=== PATIENT | female | born 1960 | race Caucasian/White ===

== ENCOUNTER → 2017-11-12 | Outpatient (CLI) | payer OTHER | LOC: LAB SHORT 11:12 | DX: M35.3 Polymyalgia rheumatica (principal) | CPT/HCPCS: 85651 ==

== ENCOUNTER → 2017-12-14 | Outpatient (CLI) | payer OTHER | LOC: LAB 10:49 | DX: M35.3 Polymyalgia rheumatica (principal) | CPT/HCPCS: 85651 ==

== ENCOUNTER → 2018-02-03 | Outpatient (CLI) | payer OTHER | END | disposition home or self-care (01) | LOC: LAB 11:20 | DX: M35.3 Polymyalgia rheumatica (principal) | CPT/HCPCS: 85651 ==

== ENCOUNTER → 2018-03-17 | Outpatient (CLI) | payer OTHER | LOC: LAB SHORT 10:22 → LAB 10:22 | DX: M35.3 Polymyalgia rheumatica (principal) | CPT/HCPCS: 85651 ==

== ENCOUNTER → 2018-04-14 | Outpatient (CLI) | payer OTHER | END | disposition home or self-care (01) | LOC: LAB 10:42 → LAB SHORT 10:42 | DX: M35.3 Polymyalgia rheumatica (principal) | CPT/HCPCS: 85651 ==

== ENCOUNTER → 2018-05-11 | Outpatient (CLI) | payer OTHER | END | disposition home or self-care (01) | LOC: LAB 09:47 → LAB SHORT 09:47 | DX: M35.3 Polymyalgia rheumatica (principal) | CPT/HCPCS: 85651 ==

== ENCOUNTER → 2018-06-21 | Outpatient (CLI) | payer OTHER | END | disposition home or self-care (01) | LOC: LAB 11:55 → LAB SHORT 11:55 | DX: M35.3 Polymyalgia rheumatica (principal) | CPT/HCPCS: 85651 ==

== ENCOUNTER → 2018-07-19 | Outpatient (CLI) | payer OTHER | LOC: LAB 11:33 → LAB SHORT 11:33 | DX: M35.3 Polymyalgia rheumatica (principal) | CPT/HCPCS: 85651 ==

== ENCOUNTER 2019-12-16 06:15 | Day surgery (SDC) | payer OTHER ==
[~2019-12-16] VITALS: Ht 167.6 cm; Wt 84.2 kg
[~2019-12-16 06:15] MED LIST: DHEA; FLAX OIL1000 MG PO; TRAM50 PO
--- NOTE | 2019-12-16 07:18 | NUR ---
12/16/19 0718 Teodora Marie PT RESTING COMFORTABLY IN BED, LISTENING TO TRANQUIL MUSIC ON HER CELL PHONE. CALL LIGHT WITHIN REACH. DENIES NEEDS AT THIS TIME.
== END 2019-12-16 10:15 | disposition home or self-care (01) ==
LOC: ORSCSDS 06:15
PROVIDERS: Podiatrist Foot & Ankle Surgery
PROC: 0SRP0JZ Replacement of Right Toe Phalangeal Joint with Synthetic Substitute, Open Approach (ICD-10-PCS; principal; 2019-12-16 07:30)
DX: M20.41 Other hammer toe(s) (acquired), right foot (principal); M21.371 Foot drop, right foot; E78.5 Hyperlipidemia, unspecified
CPT/HCPCS: C1713; J0171; J0690; J2250; J2405; J2704; J2765; J3010; J7120

== ENCOUNTER 2024-11-09 17:07 | Emergency (ER) | payer OTHER ==
[~2024-11-09] VITALS: Ht 167.6 cm; Wt 81.7 kg
[2024-11-09 17:23] VITALS: BP 131/86
[2024-11-09 17:47] LABS: BASOPHILS ABSOLUTE AUTO 0.04 K/mm3 (0.00-0.23); BASOPHILS PERCENT AUTO 1 % (0-2); EOSINOPHILS ABSOLUTE AUTO 0.12 K/mm3 (0.00-0.68); EOSINOPHILS PERCENT AUTO 2 % (0-6); Hematocrit 42.2 % (33.0-51.0); Hemoglobin 14.1 g/dL (11.5-16.0); IMMATURE GRAN ABSOLUTE AUTO 0.02 K/mm3 (0.00-0.10); IMMATURE GRAN PERCENT AUTO 0 % (0-1); LYMPHOCYTES ABSOLUTE AUTO 1.85 K/mm3 (0.84-5.20); LYMPHOCYTES PERCENT AUTO 26 % (21-46); MONOCYTES ABSOLUTE AUTO 0.79 K/mm3 (0.16-1.47); MONOCYTES PERCENT AUTO 11 % (4-13); Mean Corpuscular HGB 29.4 pg (26.0-34.0); Mean Corpuscular HGB Conc 33.4 g/dL (31.5-36.5); Mean Corpuscular Volume 88 fL (80-100); Mean Platelet Volume 9.3 fL (9.1-12.4); NEUTROPHILS PERCENT AUTO 61 % (41-73); Platelet Count 201 K/mm3 (150-400); RDW Coefficient Variation 12.6 % (11.7-14.2); RDW Standard Deviation 41.1 fL (35.1-46.3); White Blood Cell Count 7.22 K/mm3 (4.00-11.30)
[2024-11-09 18:04] LABS: C-REACTIVE PROTEIN, EXT RANGE 2.82 mg/dL (0.000-0.300)
[2024-11-09 18:07] LABS: Albumin, Blood 3.9 g/dL (3.4-5.0); Bilirubin, Total 0.5 mg/dL (0.1-1.0); Bun/Creatinine Ratio 20.1 (12.0-20.0); Creatinine, Blood 0.65 mg/dL (0.40-1.00); Globulin, Blood 3.8 g/dL (2.2-4.0); Potassium, Blood 3.9 mmol/L (3.5-5.5); Total Protein, Blood 7.7 g/dL (6.4-8.2)
[2024-11-09] MEDS ORDERED: Cephalexin Monohydrate 500 MG Cap PO ONE (19:35)
[2024-11-09] MEDS ORDERED: CEPH500 PO (19:35)
== END 2024-11-09 19:53 | disposition home or self-care (01) ==
LOC: ER 17:07
PROVIDERS: Physician Assistant
DX: L03.116 Cellulitis of left lower limb (principal); Z79.899 Other long term (current) drug therapy; Z88.1 Allergy status to other antibiotic agents
CPT/HCPCS: 80053; 85025; 86140; 99283; A9270

== ENCOUNTER 2025-02-20 04:25 | Emergency (ER) | payer OTHER ==
[~2025-02-20] VITALS: Ht 167.6 cm; Wt 81.7 kg
[~2025-02-20 04:25] MED LIST changes: +CEPH500 PO
[2025-02-20 05:43] LABS: Source, Urine Voided
[2025-02-20 05:48] LABS: Appearance, Urine Cloudy (Clear); Bilirubin, Urine Neg (Neg); Blood, Urine 5+ (Neg); Color, Urine Yellow (P-Yellow); Glucose Qualitative, Urine Neg (Neg); Ketones, Urine Neg (Neg); Leukocyte Esterase, Urine Neg (Neg); Nitrite, Urine Neg (Neg); Protein, Urine 1+ (Neg); Specific Gravity, Urine 1.015 (1.003-1.022); Urobilinogen, Urine NORM (Normal)
[2025-02-20 05:57] LABS: BASOPHILS ABSOLUTE AUTO 0.04 K/mm3 (0.00-0.23); BASOPHILS PERCENT AUTO 0 % (0-2); EOSINOPHILS ABSOLUTE AUTO 0.01 K/mm3 (0.00-0.68); EOSINOPHILS PERCENT AUTO 0 % (0-6); Hemoglobin 14.4 g/dL (11.5-16.0); IMMATURE GRAN ABSOLUTE AUTO 0.02 K/mm3 (0.00-0.10); IMMATURE GRAN PERCENT AUTO 0 % (0-1); LYMPHOCYTES ABSOLUTE AUTO 1.21 K/mm3 (0.84-5.20); LYMPHOCYTES PERCENT AUTO 12 % (21-46); MONOCYTES ABSOLUTE AUTO 0.36 K/mm3 (0.16-1.47); MONOCYTES PERCENT AUTO 4 % (4-13); Mean Corpuscular HGB 29.8 pg (26.0-34.0); Mean Corpuscular HGB Conc 34.3 g/dL (31.5-36.5); Mean Corpuscular Volume 87 fL (80-100); Mean Platelet Volume 9.3 fL (9.1-12.4); NEUTROPHILS ABSOLUTE AUTO 8.49 K/mm3 (1.96-9.15); NEUTROPHILS PERCENT AUTO 84 % (41-73); Platelet Count 232 K/mm3 (150-400); RDW Coefficient Variation 12.7 % (11.7-14.2); Red Blood Cell Count 4.83 M/mm3 (3.80-5.20); White Blood Cell Count 10.13 K/mm3 (4.00-11.30)
[2025-02-20 05:59] LABS: Bacteria Few /hpf; Red Blood Cells, Urine TNTC /hpf (0-2); Squamous Epithelial Cells Rare /hpf (Few); White Blood Cells, Urine 0-2 /hpf (0-5)
[2025-02-20 06:00] LABS: Amorphous Heavy (0-Heavy)
[2025-02-20] MEDS ORDERED: FentaNYL Citrate 50 MCG/ML 2 ML Injection IV ONE (06:05)
[2025-02-20] MEDS ORDERED: Ondansetron HCl 2 MG / ML 2ML Vial IV ONE (06:05)
[2025-02-20 06:25] LABS: Albumin, Blood 4.2 g/dL (3.4-5.0); Albumin/Globulin Ratio 1.2 (0.8-1.8); Bilirubin, Total 0.6 mg/dL (0.1-1.0); Bun/Creatinine Ratio 16.2 (12.0-20.0); Calcium, Blood 9.1 mg/dL (8.5-10.1); Creatinine, Blood 0.8 mg/dL (0.40-1.00); Globulin, Blood 3.6 g/dL (2.2-4.0); Total Protein, Blood 7.8 g/dL (6.4-8.2)
[2025-02-20] MEDS ORDERED: Tamsulosin HCl 0.4 MG Cap PO ONE (07:45)
[2025-02-20] MEDS ORDERED: Ketorolac Tromethamine 30mg Vial IV ONE (07:45)
[2025-02-20 07:55] VITALS: BP 154/72
[2025-02-20] MEDS ORDERED: OXYACE7.5T PO (08:13)
[2025-02-20] MEDS ORDERED: TAMS.4ER PO (08:13)
== END 2025-02-20 08:44 | disposition home or self-care (01) ==
LOC: ER 04:25
PROVIDERS: Student in an Organized Health Care Education/Training Program
DX: N13.2 Hydronephrosis with renal and ureteral calculous obstruction (principal); Z88.8 Allergy status to other drugs, medicaments and biological substances
CPT/HCPCS: 74177; 80053; 81001; 83690; 85025; 96374-59; 96375; 99284-25; A9270; J1885; J2405; J3010; Q9967